=== PATIENT | female | born 1990 | race Caucasian/White ===

== ENCOUNTER 2017-06-09 00:25 | Emergency (ER) | payer OTHER ==
[2017-06-09 00:30] VITALS: BP 114/79; BMI 28.0
--- NOTE | 2017-06-09 00:57 | DR.GENAD ---
HPI - PCP Primary Care Physician: nfd - Complaint/Symptoms Chief Complaint Doctors Comments: Patient would not elaborate as to mechanism of fracture of finger. Chief Complaint:: broke finger - Source History Provided: Patient - Mode of Arrival Mode of Arrival: Ambulatory - Timing Onset of Chief Complaint: 06/09/17 PMH - PMH Past Medical History: No Past Surgical History: Yes Surgical History: - Family History History of Family Medical Conditions: No - Social History Does patient currently use any type of tobacco product: No Have you used tobacco products in the last 12 months: No Type of Tobacco Use: None Does any household member use tobacco: No Alcohol Use: None Do you use any recreational Drugs:: No Lives With: Family Lives Where: Home - infectious screening In the last 2 months have you had wt loss of >10#?: NO Have you had fever, night sweats or hemotysis?: No Have you traveled outside the country in the last 6 months?: No Isolation: Standard ROS - Review of Systems Eyes: No Symptoms Reported ENTM: No Symptoms Reported Respiratoy: No Symptoms Reported Cardiovascular: No Symptoms Reported Gastrointestinal/Abdominal: No Symptoms Reported Genitourinary: No Symptoms Reported Neurological: No Symptoms Reported Musculoskeletal: No Symptoms Reported, Other (right hand 4th digis broken- spiral fracture) Integumentary: No Symptoms Reported Hematologic/Lymphatic: No Symptoms Reported Endocrine: No Symptoms Reported Psychiatric: No Symptoms Reported All Other Systems: Reviewed and Negative PE - Vital Signs Vitals: Temperature 98.2 F Pulse Rate 111 Respiratory Rate 16 Blood Pressure 114/79 O2 Sat by Pulse Oximetry 97 - General Limitations: No Limitations General Appearance: Alert, In No Apparent Distress - Head Head Exam: Normal Inspection, Atraumatic - Eyes Eye exam: Normal Appearance, PERRL, EOMI - ENT ENT Exam: Normal Exam External Ear Exam: Normal External Inspection TM/Canal Exam: Bilateral Normal Nose Exam: Normal Nose Exam Mouth Exam: Normal Inspection Throat Exam: Normal Inspection - Neck Neck Exam: Normal Inspection - Chest Chest Inspection: Normal Inspection, Symmetric Chest Wall Rise - Respiratory Respiratory Exam: Normal Lung Sounds Bilat Respiratory Exam: Bilateral Clear to Auscultation - Cardiovascular Cardiovascular Exam: Regular Rate, Normal Rhythm - Abdominal Exam Abdominal Exam: Normal Inspection Abdominal Tenderness: negative: RUQ, RLQ, LUQ, LLQ, Epigastrium, Suprapubic, Diffuse, Mild, Moderate, Severe, Other - Extremities Extremities Exam: Normal Inspection - Back Back Exam: Normal Inspection - Neurologic Neurological Exam: Alert, Oriented X3, CN II-XII Intact - Psychiatric Psychiatric Exam: Normal Affect, Normal Mood - Skin Skin Exam: Warm, Dry, Intact Course - Treatment Treatment: Dorsal nerve block of 4th digit with lidocaine 1%with 5cc.--post reduction showed good approximation - Reevaluation 1st: Improved ROR - XRAY XRAY Interpreted by: Self (spiral fracture 4th proximal phalanx ) - Diagnosis Discharge Problem: Finger fracture, right Qualifiers: Encounter type: initial encounter Finger: ring finger Fracture type: closed Phalanx: proximal Fracture alignment: displaced Qualified Code(s): S62.614A - Displaced fracture of proximal phalanx of right ring finger, initial encounter for closed fracture - Discharge Plan Condition: Stable - Follow ups/Referrals Follow ups/Referrals: [facility],None [Primary Care Provider] - 3 days - Instructions
[2017-06-09] MEDS ORDERED: XYLOCAINE 1% and EPINEPHRINE 1:100,000 ONE (01:31)
--- NOTE | 2017-06-09 02:05 | RAD ---
Right hand, three views Indication: Hand pain after fall Findings: There is an acute oblique fracture of the ring finger proximal phalanx demonstrating mild radial and volar displacement of the distal fragment. No intra-articular fracture extension identifi ed. Overlying soft tissue swelling is noted. Impression: Mildly displaced ring finger proximal phalanx fracture. Reported By:
[2017-06-09] MEDS ORDERED: NORCO 7.5/325 MG TAB PO ONE (02:16)
[2017-06-09] MEDS ORDERED: NORCO 7.5/325 MG TAB ONE (02:17)
--- NOTE | 2017-06-09 06:49 | RAD ---
HISTORY: Postreduction of right 4th finger fracture Study: Three-view right hand Comparison: June 09, 2017 at 12:57 a.m. Findings: There is less distraction of the fracture fragments involving the mid-distal shaft of the proximal p halanx of the right ring finger. Minimal residual displacement is seen. No significant angulation is noted. No new findings of significance are identified. IMPRESSION: As above. Reported By:
== END 2017-06-09 02:24 | disposition home or self-care (01) ==
LOC: ER 00:25
DX: S62.614A Displaced fracture of proximal phalanx of right ring finger, initial encounter for closed fracture (principal); Y33.XXXA Other specified events, undetermined intent, initial encounter; Y92.9 Unspecified place or not applicable
CPT/HCPCS: 73130; 96372; 99282; J2001